=== PATIENT | male | born 2000 | race Two or more races ===

== ENCOUNTER 2021-09-23 15:54 | Emergency (ER) | payer MEDICAID ==
[~2021-09-23] VITALS: Ht 180.3 cm; Wt 70.3 kg
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
[2021-09-23] MEDS ORDERED: IBUPROFEN 400 MG TABLET ONE (16:36)
[2021-09-23] MEDS ORDERED: ACETAMINOPHEN ES 500 MG TABLET ONE (16:36)
[2021-09-23] MEDS ORDERED: IBUPROFEN 400 MG TABLET PO ONE (17:00)
[2021-09-23] MEDS ORDERED: ACETAMINOPHEN 325 MG TABLET PO ONE (17:00)
--- NOTE | 2021-09-23 17:26 | NUR ---
Patient discharged to home in stable condition. Written and verbal after care instructions given. Patient verbalizes understanding of instruction.
[2021-09-23 17:27] VITALS: BP 138/73
== END 2021-09-23 17:27 | disposition home or self-care (01) ==
LOC: ER 16:05
DX: S13.4XXA Sprain of ligaments of cervical spine, initial encounter (principal); S06.0X9A Concussion with loss of consciousness of unspecified duration, initial encounter; V49.9XXA Car occupant (driver) (passenger) injured in unspecified traffic accident, initial encounter; Y93.89 Activity, other specified; Y92.89 Other specified places as the place of occurrence of the external cause; Y99.8 Other external cause status